=== PATIENT | male | born 1960 | race Caucasian/White ===

== ENCOUNTER 2023-08-26 16:36 | Inpatient (IN) | payer MEDICARE, SELFPAY ==
[2023-08-26 17:42] VITALS: BMI 37.3
[2023-08-26 17:45] VITALS: PULSE 65; O2SAT 97
[2023-08-26 17:46] VITALS: BP 135/65; PULSE 69; RESP 20; O2SAT 97
[2023-08-26 18:56] LABS: Troponin I < 0.01 ng/ml (0.00-0.034)
--- NOTE | 2023-08-26 19:59 | XR_ITS ---
PROCEDURE INFORMATION: Exam: XR Chest Exam date and time: 08/26/2023 8:13 PM Age: 63 years old Clinical indication: Shortness of breath TECHNIQUE: Imaging protocol: Radiologic exam of the chest. Views: 1 view. COMPARISON: No relevant prior studies available. FINDINGS: Lungs: Unremarkable. No consolidation. Pleural spaces: Unremarkable. No pleural effusion. No pneumothorax. Heart/Mediastinum: Cardiac silhouette appears mildly enlarged on this portable chest. Bones/joints: Prior median sternotomy, otherwise unremarkable.. IMPRESSION: Mild cardiomegaly otherwise negative chest.
[2023-08-26 20:00] VITALS: BP 137/73; PULSE 70; PULSE 71; RESP 17; TEMP 36.4; O2SAT 97
[2023-08-26 20:29] LABS: Basophils # 0.1 K/mm3 (0-0.2); Basophils % 0.8 % (0.1-2.0); Chloride 107 mmol/L (98-107); Eosinophils # 0.1 K/mm3 (0.0-0.4); Eosinophils % 1.4 % (0.1-12.0); Hematocrit 40.8 % (42.0-52.0); Lymphocytes # 1.1 K/mm3 (0.7-4.5); Lymphocytes % 18.8 % (10-50); Mean Corpuscular HGB Conc 31.9 g/dL (31.8-35.4); Mean Corpuscular Hemoglobin 32.9 pg (27.0-31.2); Mean Corpuscular Volume 103.2 fl (80-94); Mean Platelet Volume 8.6 fl (7.4-10.4); Monocytes # 0.4 K/mm3 (0.1-1.0); Monocytes % 6.1 % (1.7-9.3); Neutrophils # 4.3 K/mm3 (1.8-7.8); Neutrophils % 72.9 % (37.0-80.0); Platelet Count 174 K/mm3 (142-424); Potassium 3.9 mmoL/L (3.5-5.1); Red Blood Count 3.95 M/mm3 (4.60-6.20); Red Cell Distribution Width 14.3 % (11.5-17.5); Sodium 138 mmol/L (136-145); White Blood Count 5.8 K/mm3 (4.8-10.8)
[2023-08-26 20:32] LABS: Anion Gap 8.9 mEq/L (5-15); Blood Urea Nitrogen 9 mg/dl (9-20); Carbon Dioxide 26 mmol/L (22.0-30.0); Creatinine Clearance Estimated 130 mL/min (50-200); Estimated Glomerular Filt Rate 75 ml/min (>60); GFR (African American) 91 ML/MIN (>60)
[2023-08-26 20:33] LABS: Calcium 8.4 mg/dl (8.4-10.2); Glucose 174 mg/dl (74-100)
[2023-08-26 20:49] LABS: NT Pro Brain Natriuretic Pep. 132 pg/mL (0-125)
[2023-08-26] MEDS: LISINOPRIL 5MG TABLET 5 MG PO (21:00)
[2023-08-26] MEDS: ATORVASTATIN 40MG TABLET 40 MG PO (21:00)
[2023-08-26] MEDS: HEPARIN SODIUM 5,000 UNIT/ML VIAL 5000 UNIT SQ (21:01)
--- NOTE | 2023-08-26 21:32 | PC.NURSE ---
Spoke with Damien at [facility] pharmacy for Warfarin pharmacy request consult. He states to hold on Warfarin dose at this time. Sheridan Brady APRN notified and informed.
--- NOTE | 2023-08-26 21:51 | P.HP_ITS ---
History of Present Illness *Admission Date: 08/26/23 *Reason for visit:: chest pain *History of present illness: This is a 63 year old male with a past medical history of CAD s/p PCI and CABG, mechanicla heart valve on warfari, HTN, hypothyroidism, who presents as transfer from [facility] for further evaluation of chest pain. He reports cental chest pain with pressure, intermittent in nature that started around midnight last night. He reports getting out of bed and getting on the couch at that time. He states the pain eased and was able to get some rest. He reports the pain/pressure returned so decided to seek treatment in the ED due to his history. He also endorses associated shortness of breath with this chest discomfort, worse with exertion. EKG at [facility] revealed ST wave flattening in avl and V4 through V6. Troponin flat. Given his presentation and history, he was transferred here for further evaluation. On presentation here he does endorse mild chest pressure and shortness of breath with exertion. 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 CXR with cardiomegaly but no other abnormalities. Labs stable otherwise. Bedside monitor notable for occasional PVCs with intermittent bigeminy. He is currently [facility] Disclaimer: The information contained in this section may have been updated after the patient was seen, as this information can be updated by other users. Medical History Sleep apnea Diabetes mellitus Anxiety Surgical History (Updated 08/26/23 @ 22:01 by GUILLERMO Harding) Aortic valve replaced Family History (Updated 08/26/23 @ 18:02 by Monica Thomson RN) Other No significant family history Social History (Updated 08/26/23 @ 18:03 by Monica Thomson RN) Smoking Status: Former smoker alcohol intake: never current occupational status: retired Travel in the last 8 weeks: None Review of Systems Review of Systems Review of systems:: pertinent systems reviewed and negative unless documented below Meds Home Medications and Allergies Home Medications Medication Instructions Recorded Confirmed Type acetaminophen 500 mg tablet 500 mg PO DAILY 08/26/23 08/26/23 History aspirin 81 mg capsule,delayed 81 mg PO DAILY 08/26/23 08/26/23 History release atenolol 25 mg tablet 25 mg PO DAILY 08/26/23 08/26/23 History atorvastatin 40 mg tablet 40 mg PO DAILY 08/26/23 08/26/23 History cetirizine 10 mg tablet 10 mg PO DAILY 08/26/23 08/26/23 History cholecalciferol (vitamin D3) 25 25 mcg PO DAILY 08/26/23 08/26/23 History mcg (1,000 unit) capsule (Vitamin D3) famotidine 40 mg tablet 40 mg PO DAILY 08/26/23 08/26/23 History fluticasone propionate 50 1 spray intranasal BID 08/26/23 08/26/23 History mcg/actuation nasal spray,suspension (Flonase Allergy Relief) isosorbide mononitrate 30 mg 30 mg PO DAILY 08/26/23 08/26/23 History tablet,extended release 24 hr levothyroxine 137 mcg tablet 137 mcg PO DAILY 08/26/23 08/26/23 History lisinopril 5 mg tablet 5 mg PO DAILY 08/26/23 08/26/23 History montelukast 10 mg tablet 10 mg PO DAILY 08/26/23 08/26/23 History omeprazole 40 mg capsule,delayed 40 mg PO DAILY 08/26/23 08/26/23 History release paroxetine HCl 10 mg tablet 10 mg PO DAILY 08/26/23 08/26/23 History pregabalin 150 mg capsule (Lyrica) 150 mg PO HS 08/26/23 08/26/23 History semaglutide 1 mg/dose (4 mg/3 mL) 1 mg SQ WEEKLY 08/26/23 08/26/23 History subcutaneous pen injector (Ozempic) tamsulosin 0.4 mg capsule 0.4 mg PO DAILY 08/26/23 08/26/23 History warfarin 5 mg tablet 5 mg PO DAILY 08/26/23 08/26/23 History New Prescriptions to Start Prescriptions: Allergies Allergy/AdvReac Type Severity Reaction Status Date / Time acetaminophen Allergy Verified 08/26/23 17:44 [From Darvocet-N] meperidine [From Demerol] Allergy Verified 08/26/23 17:44 propoxyphene Allergy Verified 08/26/23 17:44 [From Darvocet-N] Exam Data for Last 24 hours Vital signs and Labs for Last 24 Hours: Pulse Resp BP Pulse Ox O2 Del Method 69 20 135/65 97 Room Air 08/26/23 17:46 08/26/23 17:46 08/26/23 17:46 08/26/23 17:46 08/26/23 21:00 Laboratory Results - last 24 hr 08/26/23 18:07: Troponin I < 0.01 08/26/23 20:10: WBC 5.8, RBC 3.95 L, Hgb 13.0 L, Hct 40.8 L, MCV 103.2 H, MCH 32.9 H, MCHC 31.9, RDW 14.3, Plt Count 174, MPV 8.6, Neut % (Auto) 72.9, Lymph % (Auto) 18.8, [place] % (Auto) 6.1, Eos % (Auto) 1.4, Baso % (Auto) 0.8, Neut # (Auto) 4.3, Lymph # (Auto) 1.1, [place] # (Auto) 0.4, Eos # (Auto) 0.1, Baso # (Auto) 0.1, PT 32.0 H, INR 3.20 H, Sodium 138, Potassium 3.9, Chloride 107, Carbon Dioxide 26, Anion Gap 8.9, BUN 9, Creatinine 1.00, Estimated Creat Clear 130, Estimated GFR 75, Est GFR ( Amer) 91, Glucose 174 H, Calcium 8.4, NT-Pro-B Natriuret Pep 132 H I & O for Last 24 hours: Intake & Output 08/23/23 08/24/23 08/25/23 08/26/23 23:59 23:59 23:59 23:59 Weight 124.965 kg Constitutional Constitutional: no acute distress *Routine HEENT Exam Head: Present normocephalic Eye: Present EOMI and PERRL ENT: Present mucous membranes moist *Routine Neck Exam Neck: Present supple; Absent lymphadenopathy *Routine Respiratory Exam Respiratory: Present CTA bilaterally *Routine Cardiovascular Exam Cardiovascular: Present RRR *Routine Abdominal Exam Abdominal: Present soft and normoactive bowel sounds; Absent tenderness *Routine Rectal Exam Rectal:: deferred *Routine Genitalia Exam Genitalia:: deferred *Routine Extremities Exam Extremities: Absent cyanosis, clubbing or edema *Routine Skin Exam Skin: Present warm; Absent rash *Routine Neurological Exam Neurological: Present alert and oriented X3 Assessment and Plan *Assessment and plan (1) Unstable angina: Status: Acute Category: Medical Code(s): I20.0 - Unstable angina (2) CAD (coronary artery disease): Status: Acute Qualifiers: Coronary Disease-Associated Artery/Lesion type: bypass graft Category: Medical Code(s): I25.10 - Atherosclerotic heart disease of [place] coronary artery without angina pectoris (3) Mechanical heart valve present: Status: Acute Category: Surgical Code(s): Z95.2 - Presence of prosthetic heart valve (4) Chronic anticoagulation: Status: Acute Category: Medical Code(s): 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 Will see in AM Troponins negative, EKG with T wave flattenitng but no acute ST elevation Continue DAPT Continue Statin medication Trend troponins Lipid panel and A1c In am NPO for likely cath in am #Aortic Mechanical Valve #Chronic anticoagulation Pharmacy consulted for warfarin managment Will hold Coumdain tonight given likely cath in AM #HTN Continue home lisinopril DVT Ppx home AC FUll Code
[2023-08-26 22:00] LABS: Troponin I < 0.01 ng/ml (0.00-0.034)
--- NOTE | 2023-08-26 22:54 | ECG_ITS ---
APPROVED REPORT Exam: Resting ECG HR:76 bpm ECG Measurements Heart Rate 76 AXES AR 180 P 2 QRSd 128 QRS 40 QT 418 T -50 QTc 448 Conclusion SINUS RHYTHM INFERIOR MYOCARDIAL INFARCTION , OF INDETERMINATE AGE [40+ ms Q WAVE AND/OR ST/T ABNORMALITY IN II/aVF] ABNORMAL ECG UNCONFIRMED REPORT Electronically signed by : Herman Fernandez MD 08/29/2023 12:26:03
[2023-08-26 23:05] LABS: POC Glucose,Bedside 165 (70-110)
[2023-08-27] VITALS (11 sets, daily range): BP systolic 108–155; BP diastolic 49–79; PULSE 60–79; RESP 16–24; TEMP 36.4–36.8; O2SAT 20–98; BMI 37.3
[2023-08-27 03:47] LABS: Troponin I < 0.01 ng/ml (0.00-0.034)
[2023-08-27] MEDS: HEPARIN SODIUM 5,000 UNIT/ML VIAL 5000 UNIT SQ ×3 (05:16→20:35)
--- NOTE | 2023-08-27 06:00 | CA_ITS ---
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: Sejal Paredes, GRETA, RVS Ht: 6 ft 0 in Wt: 275lbs BSA: 2.44 BP: 140/74 mmHg Indications: CAD,CAbg, Mechanical AVR, HTN, Ex-smoker, SAMANTHA, SOB 2D Dimensions Left Atrium 3.20 cm LVEF ([facility]'s) 37.90 % LV Volume 106.90 mL EF AP4 42.10 % EF AP2 35.9 % EF BP 37.9 % GL Strain -16.3 % M-Mode Dimensions RVDd 2.74 cm (0.9-2.6) LA Diam 4.26 cm (1.9-4.0) LVDd 5.76 cm (3.5-5.7) LVDs 4.02 cm (3.5-5.7) IVSd 1.33 cm (0.6-1.1) PWd 1.37 cm (0.6-1.1) EF (Teich) 56.80% EPSs 0.61 cm FS 30.20% EDV (Teich) 163.90 mL TAPSE 2.27 (<1.7) ESV (Teich) 70.80 mL LV Diastology E Decel Time 187 (160-240 msec) E/A Ratio 1.37 MED A' 9.20 cm/s LAT A' 12.00 cm/s Aortic Valve KAREN Index 0.86 cm2/m2 AoV Peak Hayden. 209.0 (50-130 cm/s) AI PHT 502.00 ms AO Peak GR. 17.40 mmHg AO Mean GR. 8.60 (<5 mmHg) AO VTI 40.4 (18-25 cm) KAREN (VTI) 2.15 (2.5-4.5 cm2) Mitral Valve MV A Velocity 58.0 (40-130 cm/s) E/A Ratio 1.37 Pulmonary Valve PV Peak Velocity 82.0 (50-150 cm/s) Tricuspid Valve TR P. Velocity 211.00 cm/s RAP Estimate 10.00 mmHg RVSP 27.90 mmHg Left Ventricle The left ventricle is normal size. The left ventricular systolic function is normal. The left ventricular ejection fraction is within the normal range. There is increased LV wall thickness. There is normal LV segmental wall motion. The left ventricular diastolic function is normal. LVEF is 55%. Right Ventricle The right ventricle is mildly dilated. The right ventricular systolic function is normal. Atria The left atrium size is normal. The right atrium size is normal. There is no Doppler evidence of interatrial shunt. Aortic Valve s/p mechanical AVR. The prosthesis is well-seated. Peak velocity 2.1 m/s. Mean AV gradient 7 mmHg. Max AV gradient 18 mmHg. Trace aortic regurgitation. Mitral Valve The mitral valve leaflets are mildly thickened. No evidence of mitral valve stenosis. Trace mitral regurgitation. Tricuspid Valve The tricuspid valve leaflets are thin and pliable. Trace tricuspid regurgitation. There is insufficient TR jet to estimate RVSP. Pulmonic Valve The pulmonary valve is normal in structure. Mild pulmonic regurgitation. Great Vessels The aortic root is normal in size. The ascending aorta is not well-visualized. The IVC is not well-visualized. Pericardium There is no pericardial effusion. Other Information Study Quality: Fair Conclusion Normal biventricular systolic function. Mild RV dilation. Mild PI. s/p mechanical AVR with overall acceptable transaortic valvular velocity and gradients. Electronically signed by : Diane Amaya MD 08/28/2023 01:31:18
[2023-08-27 06:35] LABS: POC Glucose,Bedside 145 (70-110)
[2023-08-27 06:51] LABS: Blood Urea Nitrogen 9 mg/dl (9-20); Calcium 8.5 mg/dl (8.4-10.2); Carbon Dioxide 27 mmol/L (22.0-30.0); Chloride 105 mmol/L (98-107); Creatinine Clearance Estimated 130 mL/min (50-200); Estimated Glomerular Filt Rate 75 ml/min (>60); GFR (African American) 91 ML/MIN (>60); Glucose 140 mg/dl (74-100); Sodium 139 mmol/L (136-145)
[2023-08-27 06:56] LABS: Basophils % 0.8 % (0.1-2.0); Eosinophils # 0.1 K/mm3 (0.0-0.4); Eosinophils % 2.2 % (0.1-12.0); Hematocrit 41.2 % (42.0-52.0); Hemoglobin 13.1 g/dL (14.1-18.0); Lymphocytes # 1.1 K/mm3 (0.7-4.5); Lymphocytes % 21.1 % (10-50); Mean Corpuscular HGB Conc 31.7 g/dL (31.8-35.4); Mean Corpuscular Hemoglobin 32.5 pg (27.0-31.2); Mean Corpuscular Volume 102.6 fl (80-94); Mean Platelet Volume 8.4 fl (7.4-10.4); Monocytes # 0.5 K/mm3 (0.1-1.0); Neutrophils # 3.6 K/mm3 (1.8-7.8); Neutrophils % 66.9 % (37.0-80.0); Platelet Count 169 K/mm3 (142-424); Red Blood Count 4.02 M/mm3 (4.60-6.20); White Blood Count 5.4 K/mm3 (4.8-10.8)
[2023-08-27 07:18] LABS: Chol/HDL Ratio 4.1 (1-3.5); Cholesterol 115 mg/dl (140-200); HDL Cholesterol 28 mg/dl (40-60); Triglycerides 220 mg/dl (30-150); VLDL Cholesterol 44 mg/dL (0-40)
[2023-08-27] MEDS: ASPIRIN EC 81MG TABLET 81 MG PO (08:31)
[2023-08-27] MEDS: FAMOTIDINE 20MG TABLET 40 MG PO (08:31)
[2023-08-27] MEDS: LEVOTHYROXINE 137MCG (0.137MG) TAB 137 MCG PO (08:31)
[2023-08-27 10:20] LABS: Hemoglobin A1C 7.8 % (4.0-6.0)
--- NOTE | 2023-08-27 11:21 | HMH.PHAINT1 ---
Pharmacy Intervention Comments: MEDICATION RECONCILIATION COMPLETED ON PATIENT USING EXTERNAL FILL HISTORY FROM PHARMACY. -FER MENENDEZ, [place]
--- NOTE | 2023-08-27 13:38 | P.CONCA_ITS ---
History of Present Illness History of Present Illness Consult date: 08/27/23 Requesting physician: Mihaela Pimentel Consult reason: chest pain Chief complaint: Chest pain Additional Medical History:: History of present illness: 63-year-old white male with history of CAD status post CABG and mechanical aortic valve replacement in 2003, status post PCI 2010. He is typically managed by Dr. Lopez in [place]. 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 Over the past week he noticed worsening shortness of breath doing his mowing activities followed by more frequent PVCs. Night before last he woke up with substernal chest pressure which was occurring episodically and partially relieved with nitroglycerin. He presented to the [facility] emergency room for evaluation and had t-wave inversions but normal Troponin and was transferred here for possible cath. This morning he reports he still has mild ongoing chest pressure which is relieved with Ntg but that causes hypotension and headache and he would like to decline the Ntg for now. His INR is 3.2 on arrival and he states pain is mild/tolerable. ECHO is pending. [facility] Disclaimer: The information contained in this section may have been updated after the patient was seen, as this information can be updated by other users. Medical History Sleep apnea Diabetes mellitus Anxiety Surgical History Aortic valve replaced Family History Other No significant family history Social History Smoking Status: Former smoker alcohol intake: never current occupational status: retired Travel in the last 8 weeks: None Review of Systems Constitutional Constitutional: Denies fatigue and Denies weakness Eyes Eyes: Denies loss of vision ENT Ears, Nose, Mouth, and Throat: Denies hearing loss and Denies vertigo *Cardiovascular Cardiovascular: Reports chest pain, Denies dyspnea and Denies syncope *Respiratory Respiratory: Denies cough and Denies dyspnea *Gastrointestinal Gastrointestinal: Denies change in stool character, Denies nausea and Denies vomiting *Genitourinary Genitourinary: Denies difficulty urinating *Musculoskeletal Musculoskeletal: Denies muscle weakness Integumentary/Breasts Skin/Breast: Denies changing lesions *Neurologic Neurologic: Denies loss of vision, Denies syncope, Denies vertigo and Denies weakness Endocrine Endocrine: Denies fatigue Exam Data for Last 24 hours Vital signs and Labs for Last 24 Hours: Temp Pulse Resp BP Pulse Ox O2 Del Method 98.1 F 79 19 155/79 H 96 Room Air 08/27/23 12:00 08/27/23 12:00 08/27/23 12:00 08/27/23 12:00 08/27/23 12:00 08/27/23 12:00 Laboratory Results - last 24 hr 08/26/23 18:07: Troponin I < 0.01 08/26/23 20:10: WBC 5.8, RBC 3.95 L, Hgb 13.0 L, Hct 40.8 L, MCV 103.2 H, MCH 32.9 H, MCHC 31.9, RDW 14.3, Plt Count 174, MPV 8.6, Neut % (Auto) 72.9, Lymph % (Auto) 18.8, [place] % (Auto) 6.1, Eos % (Auto) 1.4, Baso % (Auto) 0.8, Neut # (Auto) 4.3, Lymph # (Auto) 1.1, [place] # (Auto) 0.4, Eos # (Auto) 0.1, Baso # (Auto) 0.1, PT 32.0 H, INR 3.20 H, Sodium 138, Potassium 3.9, Chloride 107, Carbon Dioxide 26, Anion Gap 8.9, BUN 9, Creatinine 1.00, Estimated Creat Clear 130, Estimated GFR 75, Est GFR ( Amer) 91, Glucose 174 H, Calcium 8.4, NT-Pro-B Natriuret Pep 132 H 08/26/23 21:12: POC Glucose 165 H 08/26/23 21:19: Troponin I < 0.01 08/27/23 03:15: Troponin I < 0.01 08/27/23 05:11: WBC 5.4, RBC 4.02 L, Hgb 13.1 L, Hct 41.2 L, MCV 102.6 H, MCH 32.5 H, MCHC 31.7 L, RDW 14.0, Plt Count 169, MPV 8.4, Neut % (Auto) 66.9, Lymph % (Auto) 21.1, [place] % (Auto) 9.0, Eos % (Auto) 2.2, Baso % (Auto) 0.8, Neut # (Auto) 3.6, Lymph # (Auto) 1.1, [place] # (Auto) 0.5, Eos # (Auto) 0.1, Baso # (Auto) 0.0, Sodium 139, Potassium 4.0, Chloride 105, Carbon Dioxide 27, Anion Gap 11.0, BUN 9, Creatinine 1.00, Estimated Creat Clear 130, Estimated GFR 75, Est GFR ( Amer) 91, Glucose 140 H, Hemoglobin A1c 7.8 H, Calcium 8.5, Triglycerides 220 H, Cholesterol 115 L, LDL Cholesterol Direct 58.20 L, VLDL Cholesterol 44 H, HDL Cholesterol 28 L, Cholesterol/HDL Ratio 4.1 H 08/27/23 06:14: POC Glucose 145 H I & O for Last 24 hours: Intake & Output 08/24/23 08/25/23 08/26/23 08/27/23 23:59 23:59 23:59 23:59 Intake Total 920 / 920 Output Total 200 / 200 Balance 720 / 720 Weight 275 lb 8 oz 276 lb Constitutional Constitutional: no acute distress and cooperative *Routine HEENT Exam Eye: Present PERRL *Routine Respiratory Exam Respiratory: Present CTA bilaterally; Absent accessory muscle use, wheezes or crackles *Routine Cardiovascular Exam Cardiovascular: Present RRR, Normal S1 and Normal S2; Absent murmur, gallop or rubs *Routine Abdominal Exam Abdominal: Present soft; Absent tenderness *Routine Extremities Exam Extremities: Present pulses intact; Absent cyanosis or edema *Routine Skin Exam Skin: Present intact; Absent erythema or wounds *Routine Neurological Exam Neurological: Present alert and oriented X3 Routine Psychiatric Exam Psychiatric: Present cooperative Meds Home Medications and Allergies Home Medications Medication Instructions Recorded Confirmed Type acetaminophen 500 mg tablet 500 mg PO DAILY 08/26/23 08/26/23 History atenolol 25 mg tablet 25 mg PO DAILY 08/26/23 08/27/23 History atorvastatin 40 mg tablet 40 mg PO DAILY 08/26/23 08/27/23 History cetirizine 10 mg tablet 10 mg PO DAILY 08/26/23 08/27/23 History cholecalciferol (vitamin D3) 25 25 mcg PO DAILY 08/26/23 08/27/23 History mcg (1,000 unit) capsule (Vitamin D3) famotidine 40 mg tablet 40 mg PO DAILY 08/26/23 08/27/23 History fluticasone propionate 50 1 spray intranasal BID 08/26/23 08/27/23 History mcg/actuation nasal spray,suspension (Flonase Allergy Relief) isosorbide mononitrate 30 mg 15 mg PO DAILY 08/26/23 08/27/23 History tablet,extended release 24 hr levothyroxine 137 mcg tablet 137 mcg PO DAILY 08/26/23 08/27/23 History lisinopril 5 mg tablet 5 mg PO DAILY 08/26/23 08/27/23 History montelukast 10 mg tablet 10 mg PO PM 08/26/23 08/27/23 History omeprazole 40 mg capsule,delayed 40 mg PO DAILY 08/26/23 08/27/23 History release paroxetine HCl 10 mg tablet 10 mg PO DAILY 08/26/23 08/27/23 History semaglutide 1 mg/dose (4 mg/3 mL) 1 mg SQ WEEKLY 08/26/23 08/27/23 History subcutaneous pen injector (Ozempic) tamsulosin 0.4 mg capsule 0.4 mg PO HS 08/26/23 08/27/23 History warfarin 5 mg tablet 5 mg PO HS 08/26/23 08/27/23 History aspirin 81 mg tablet,delayed 81 mg PO DAILY 08/27/23 08/27/23 History release ranolazine 500 mg tablet,extended 500 mg PO BID 08/27/23 08/27/23 History release,12 hr New Prescriptions to Start Prescriptions: Allergies Allergy/AdvReac Type Severity Reaction Status Date / Time acetaminophen Allergy Verified 08/26/23 17:44 [From Darvocet-N] meperidine [From Demerol] Allergy Verified 08/26/23 17:44 propoxyphene Allergy Verified 08/26/23 17:44 [From Darvocet-N] Assessment and Plan *Assessment and plan (1) CAD (coronary artery disease): Status: Acute Qualifiers: Coronary Disease-Associated Artery/Lesion type: bypass graft Category: Medical Code(s): I25.10 - Atherosclerotic heart disease of [place] coronary artery without angina pectoris (2) Unstable angina: Status: Acute Category: Medical Code(s): I20.0 - Unstable angina (3) Mechanical heart valve present: Status: Acute Category: Surgical Code(s): Z95.2 - Presence of prosthetic heart valve (4) Chronic anticoagulation: Status: Acute Category: Medical Code(s): 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 No Lovenox or Plavix due to INR of 3.2 and pending LHC. His INR is 3.2 so we will wait until tomorrow for cath. Pt is agreeable to this and states symptoms are tolerable. He will advise us if any changes/worsening and we can take to cardiac cath lab technologist immediately s/p mechanical aortic valve 2010 - on warfarin daily, INR 3.2 - hold warfarin for LHC - ECHO pending Htn - cont home meds Obesity, BMI 37 - recommend aggressive weight loss via diet and exercise
--- NOTE | 2023-08-27 15:24 | PC.NURSE ---
PT IS SITTING UP IN THE CHAIR. ALERT AND ORIENTED X4. EATING AND DRINKING WELL. PT STATES HE STILL HAS A DULL ACHE IN HIS CHEST THAT HE DESCRIBES MILD AND TOLERABLE. NSR ON TELEMETRY. LUNG SOUNDS CLEAR. ABDOMEN SOFT/NON TENDER WITH ACTIVE BOWEL SOUNDS. NO SWELLING NOTED TO BLE. AMBULATED IN THE ANN. VSS. WILL CONTINUE TO MONITOR.
[2023-08-27 16:24] LABS: POC Glucose,Bedside 154 (70-110)
--- NOTE | 2023-08-27 16:39 | EXP.PN ---
Subjective *Date: 08/27/23 *Time: 16:39 Interval history: patient is seen at bedside, he admits to CP, SOB, denied fevers, chills Exam Data for Last 24 hours Vital signs and Labs for Last 24 Hours: Temp Pulse Resp BP Pulse Ox O2 Del Method O2 Flow Rate 97.9 F 68 16 150/78 H 94 L Nasal Cannula 4 08/27/23 16:00 08/27/23 16:00 08/27/23 16:00 08/27/23 16:00 08/27/23 16:00 08/27/23 15:07 08/27/23 15:07 Laboratory Results - last 24 hr 08/26/23 18:07: Troponin I < 0.01 08/26/23 20:10: WBC 5.8, RBC 3.95 L, Hgb 13.0 L, Hct 40.8 L, MCV 103.2 H, MCH 32.9 H, MCHC 31.9, RDW 14.3, Plt Count 174, MPV 8.6, Neut % (Auto) 72.9, Lymph % (Auto) 18.8, [place] % (Auto) 6.1, Eos % (Auto) 1.4, Baso % (Auto) 0.8, Neut # (Auto) 4.3, Lymph # (Auto) 1.1, [place] # (Auto) 0.4, Eos # (Auto) 0.1, Baso # (Auto) 0.1, PT 32.0 H, INR 3.20 H, Sodium 138, Potassium 3.9, Chloride 107, Carbon Dioxide 26, Anion Gap 8.9, BUN 9, Creatinine 1.00, Estimated Creat Clear 130, Estimated GFR 75, Est GFR ( Amer) 91, Glucose 174 H, Calcium 8.4, NT-Pro-B Natriuret Pep 132 H 08/26/23 21:12: POC Glucose 165 H 08/26/23 21:19: Troponin I < 0.01 08/27/23 03:15: Troponin I < 0.01 08/27/23 05:11: WBC 5.4, RBC 4.02 L, Hgb 13.1 L, Hct 41.2 L, MCV 102.6 H, MCH 32.5 H, MCHC 31.7 L, RDW 14.0, Plt Count 169, MPV 8.4, Neut % (Auto) 66.9, Lymph % (Auto) 21.1, [place] % (Auto) 9.0, Eos % (Auto) 2.2, Baso % (Auto) 0.8, Neut # (Auto) 3.6, Lymph # (Auto) 1.1, [place] # (Auto) 0.5, Eos # (Auto) 0.1, Baso # (Auto) 0.0, Sodium 139, Potassium 4.0, Chloride 105, Carbon Dioxide 27, Anion Gap 11.0, BUN 9, Creatinine 1.00, Estimated Creat Clear 130, Estimated GFR 75, Est GFR ( Amer) 91, Glucose 140 H, Hemoglobin A1c 7.8 H, Calcium 8.5, Triglycerides 220 H, Cholesterol 115 L, LDL Cholesterol Direct 58.20 L, VLDL Cholesterol 44 H, HDL Cholesterol 28 L, Cholesterol/HDL Ratio 4.1 H 08/27/23 06:14: POC Glucose 145 H 08/27/23 16:16: POC Glucose 154 H I & O for Last 24 hours: Intake & Output 08/24/23 08/25/23 08/26/23 08/27/23 23:59 23:59 23:59 23:59 Intake Total 920 / 920 Output Total 800 / 800 Balance 120 / 120 Weight 124.965 kg 125.191 kg Constitutional Constitutional: no acute distress *Routine HEENT Exam Head: Present normocephalic Eye: Present EOMI and PERRL ENT: Present mucous membranes moist *Routine Neck Exam Neck: Present supple; Absent lymphadenopathy *Routine Respiratory Exam Respiratory: Present CTA bilaterally *Routine Cardiovascular Exam Cardiovascular: Present RRR *Routine Abdominal Exam Abdominal: Present soft and normoactive bowel sounds; Absent tenderness *Routine Extremities Exam Extremities: Absent cyanosis, clubbing or edema *Routine Skin Exam Skin: Present warm; Absent rash *Routine Neurological Exam Neurological: Present alert and oriented X3 Assessment and Plan *Assessment and plan (1) Unstable angina: Status: Acute Category: Medical Code(s): I20.0 - Unstable angina (2) CAD (coronary artery disease): Status: Acute Qualifiers: Coronary Disease-Associated Artery/Lesion type: bypass graft Category: Medical Code(s): I25.10 - Atherosclerotic heart disease of [place] coronary artery without angina pectoris (3) Mechanical heart valve present: Status: Acute Category: Surgical Code(s): Z95.2 - Presence of prosthetic heart valve (4) Chronic anticoagulation: Status: Acute Category: Medical Code(s): Z79.01 - skilled nursing (current) use of anticoagulants (5) Hypertension: Status: Acute Qualifiers: Hypertension type: primary hypertension Qualified Code(s): I10 - Essential (primary) hypertension Category: Medical Code(s): I10 - Essential (primary) hypertension Plan This is 63 year old male with extensive cardiac disease and history who is admitted for ACS and unstabl angina. #Unstable angina #CAD Hx of CABG and PCI to LAD Pain at rest with worsening symptoms with exertion Troponins negative, EKG with T wave flattenitng but no acute ST elevation Continue DAPT Continue Statin medication Trend troponins NPO for likely cath in am #Aortic Mechanical Valve #Chronic anticoagulation Pharmacy consulted for warfarin managment Will hold Coumdain tonight given likely cath in AM #HTN Continue home lisinopril DVT Ppx - INR 3.2, hold coumadin per cardiology for cardiac cath, NPO after MN FUll Code
[2023-08-27] MEDS: ATORVASTATIN 40 MG PO (20:35)
[2023-08-27] MEDS: TAMSULOSIN 0.4MG CAPSULE 0.400000000000000022 MG PO (20:35)
[2023-08-27] MEDS: PANTOPRAZOLE 40MG TABLET 40 MG PO (20:35)
[2023-08-27] MEDS: LISINOPRIL 5 MG PO (20:35)
[2023-08-27] MEDS: ATENOLOL 25 MG PO (20:37)
[2023-08-27 21:29] LABS: POC Glucose,Bedside 120 (70-110)
[2023-08-28] VITALS (18 sets, daily range): BP systolic 93–137; BP diastolic 50–79; PULSE 59–77; RESP 16–21; TEMP 36.5–36.7; O2SAT 92–100; BMI 37.1
--- NOTE | 2023-08-28 05:01 | PC.NURSE ---
pt has rested well this shift, A&Ox4, no complaints of worsening chest pain, pt states dull tightening in chest that has not worsened since previous shift, pt remains NSR on tele, tolerating RA with 02 sats >90%, no acute changes since previous assessment
[2023-08-28] MEDS: HEPARIN SODIUM 5,000 UNIT/ML VIAL 5000 UNIT SQ (05:56)
[2023-08-28] MEDS: LEVOTHYROXINE 137 MCG PO (06:02)
[2023-08-28 06:07] LABS: Basophils % 0.7 % (0.1-2.0); Eosinophils # 0.2 K/mm3 (0.0-0.4); Eosinophils % 2.8 % (0.1-12.0); Hematocrit 43.4 % (42.0-52.0); Hemoglobin 13.8 g/dL (14.1-18.0); Lymphocytes # 1.5 K/mm3 (0.7-4.5); Lymphocytes % 28.4 % (10-50); Mean Corpuscular HGB Conc 31.9 g/dL (31.8-35.4); Mean Corpuscular Hemoglobin 33.2 pg (27.0-31.2); Mean Corpuscular Volume 104.1 fl (80-94); Mean Platelet Volume 8.2 fl (7.4-10.4); Monocytes # 0.5 K/mm3 (0.1-1.0); Monocytes % 9.5 % (1.7-9.3); Neutrophils % 58.5 % (37.0-80.0); Platelet Count 172 K/mm3 (142-424); Red Blood Count 4.17 M/mm3 (4.60-6.20); White Blood Count 5.2 K/mm3 (4.8-10.8)
[2023-08-28 06:13] LABS: INR 2.04 (0.9-1.1)
[2023-08-28 06:14] LABS: Blood Urea Nitrogen 11 mg/dl (9-20); Carbon Dioxide 27 mmol/L (22.0-30.0); Chloride 104 mmol/L (98-107); Creatinine Clearance Estimated 118 mL/min (50-200); Estimated Glomerular Filt Rate 67 ml/min (>60); GFR (African American) 81 ML/MIN (>60); Glucose 137 mg/dl (74-100); Sodium 138 mmol/L (136-145)
[2023-08-28 07:06] LABS: POC Glucose,Bedside 125 (70-110)
[2023-08-28] MEDS: LORATADINE 10MG TABLET 10 MG PO (08:21)
[2023-08-28] MEDS: ISOSORBIDE MONO 30MG TAB.ER.24H 15 MG PO (08:21)
[2023-08-28] MEDS: PARoxetine 10MG TABLET 10 MG PO (08:21)
[2023-08-28] MEDS: FAMOTIDINE 40 MG 1 EACH PO (08:21)
[2023-08-28] MEDS: *PAT OWN MED* ASPIRIN EC 81MG TABLET 81 MG PO (08:22)
--- NOTE | 2023-08-28 10:00 | IR_ITS ---
APPROVED REPORT Patient Location: Inpatient PROCEDURES Selective coronary angiogram Catheter placed in left subclavian artery with left subclavian artery angiography and indirect angiography of the left internal mammary artery INDICATION Coronary artery disease, History of coronary bypass surgery, Unstable angina, Informed consent was obtained prior to the procedure. COMPLICATIONS NONE Estimated Blood Loss: LESS THAN 10 ML TECHNIQUE One percent lidocaine used to anesthetize the right anterior aspect of the wrist. The right radial artery was accessed via the Seldinger technique. A 6 [place] sheath was placed in the right radial artery. 2.5 mg of Verapamil, 800 mcg of nitroglycerin, 1mg Lidocaine and 5000 U Heparin were given through the arterial sheath. The papa catheter was also used to perform selective coronary angiogram. The same catheter was placed in the left subclavian artery and left subclavian artery angiography was performed within direct visualization of the left internal mammary artery at the end of the procedure the sheath was removed good hemostasis was achieved using Traclet band, patient was transferred to the postop holding area in stable condition. ANGIOGRAPHIC RESULTS The left main artery Normal The left anterior descending artery Has a stent in the proximal segment which appears undersized but widely patent accompanied by SHAAN III flow. There is additional 30% mid vessel stenosis with no competitive flow from the left internal mammary artery The circumflex artery Is nondominant yet still large and has a long mid vessel tubular 30% stenosis The right coronary artery Is a dominant vessel and has proximal 20% with a mid vessel 30% stenosis and distal 30 to 40% stenosis. The posterior descending artery has a proximal concentric 30 to 40% stenosis with 30% stenosis in the mid posterior lateral branch The HUYNH ventriculogram reveals Was not performed however the mechanical aortic valve appeared to be opening and closing appropriately The left ventricular end-diastolic pressure Was not measured Left subclavian artery is widely patent as is the proximal portion of the left internal mammary graft however the vessel is then physiologically occluded with no flow into the LAD IMPRESSION Occluded left internal mammary artery Patent coronary arteries as described above PLAN 1. Continue medical management 2. Risk factor modification Electronically signed by : Marko Farooq MD 08/28/2023 12:47:21
[2023-08-28 11:21] LABS: POC Glucose,Bedside 120 (70-110)
[2023-08-28] MEDS: HEPARIN 1,000 UNITS/ML 10ML VIAL (CATH LAB) 10000 UNIT IV (12:47)
[2023-08-28] MEDS: HEPARIN 1,000 UNITS/500ML NS (CATH LAB) 3000 UNIT IV (12:47)
[2023-08-28] MEDS: 0.9 % SODIUM CHLORIDE 500 ML 25 ML IV (12:47)
[2023-08-28] MEDS: LIDOCAINE 1% 10ML MDV 20 ML IJ (12:47)
[2023-08-28] MEDS: diphenhydrAMINE 50MG/ML VIAL 50 MG IV (12:48)
[2023-08-28] MEDS: VERAPAMIL 2.5MG/ML 2ML VIAL 2.5 MG IV (12:48)
[2023-08-28] MEDS: MIDAZOLAM HCL 1MG/1ML 5ML VIAL 1 MG IV (12:48)
[2023-08-28] MEDS: NITROGLYCERIN 800MCG/8ML SYR (CATH LAB) 800 MCG IA (12:48)
[2023-08-28] MEDS: FENTANYL 100MCG/2ML VIAL 50 MCG IV (12:48)
[2023-08-28] MEDS: IOPAMIDOL-370 (76%);100ML BOTTLE 90 ML IV (14:45)
--- NOTE | 2023-08-28 16:49 | P.DS_ITS ---
General Admission date:: 08/27/23 Discharge date: 08/28/23 HPI HPI HPI: This is a 63 year old male with a past medical history of CAD s/p PCI and CABG, mechanicla heart valve on warfari, HTN, hypothyroidism, who presents as transfer from [facility] for further evaluation of chest pain. He reports cental chest pain with pressure, intermittent in nature that started around midnight last night. He reports getting out of bed and getting on the couch at that time. He states the pain eased and was able to get some rest. He reports the pain/pressure returned so decided to seek treatment in the ED due to his history. He also endorses associated shortness of breath with this chest discomfort, worse with exertion. EKG at [place] revealed ST wave flattening in avl and V4 through V6. Troponin flat. Given his presentation and history, he was transferred here for further evaluation. On presentation here he does endorse mild chest pressure and shortness of breath with exertion. Troponin negative here, EKG with no significant changes from EKG [employer]. CXR with cardiomegaly but no other abnormalities. Labs stable otherwise. Bedside monitor notable for occasional PVCs with intermittent bigeminy. He is currently Hospital Course Hospital Course Hospital Course: This is 63 year old male with extensive cardiac disease and history who is admitted for ACS and unstabl angina. patient is s/p cardiac cath during this hospitalization and no new stenting was performed, patient is cleared for discharge per cardiology with no changes in medication and to f/u as OP, patient and family agreed with the discharge plan. Total time spent 38 mints, patient is discharged in stable condition and verbalized understanding. #Unstable angina #CAD Hx of CABG and PCI to LAD #Aortic Mechanical Valve #Chronic anticoagulation #HTN Exam Data for Last 24 hours Vital signs and Labs for Last 24 Hours: Temp Pulse Resp BP Pulse Ox O2 Del Method 97.7 F 60 18 103/67 L 96 Room Air 08/28/23 13:15 08/28/23 16:00 08/28/23 16:00 08/28/23 16:00 08/28/23 16:00 08/28/23 16:33 Laboratory Results - last 24 hr 08/27/23 20:49: POC Glucose 120 H 08/28/23 05:36: WBC 5.2, RBC 4.17 L, Hgb 13.8 L, Hct 43.4, MCV 104.1 H, MCH 33.2 H, MCHC 31.9, RDW 14.0, Plt Count 172, MPV 8.2, Neut % (Auto) 58.5, Lymph % (Auto) 28.4, [place] % (Auto) 9.5 H, Eos % (Auto) 2.8, Baso % (Auto) 0.7, Neut # (Auto) 3.0, Lymph # (Auto) 1.5, [place] # (Auto) 0.5, Eos # (Auto) 0.2, Baso # (Auto) 0.0, PT 21.0 H, INR 2.04 H, Sodium 138, Potassium 4.0, Chloride 104, Carbon Dioxide 27, Anion Gap 11.0, BUN 11, Creatinine 1.10, Estimated Creat Clear 118, Estimated GFR 67, Est GFR ( Amer) 81, Glucose 137 H, Calcium 9.0 08/28/23 05:56: POC Glucose 125 H 08/28/23 11:11: POC Glucose 120 H I & O for Last 24 hours: Intake & Output 08/25/23 08/26/23 08/27/23 08/28/23 23:59 23:59 23:59 23:59 Intake Total 1400 / 1400 240 / 240 Output Total 800 / 800 0 / 0 Balance 600 / 600 240 / 240 Weight 124.965 kg 125.191 kg 124.511 kg Constitutional Constitutional: no acute distress *Routine HEENT Exam Head: Present normocephalic Eye: Present EOMI and PERRL ENT: Present mucous membranes moist *Routine Neck Exam Neck: Present supple; Absent lymphadenopathy *Routine Respiratory Exam Respiratory: Present CTA bilaterally *Routine Cardiovascular Exam Cardiovascular: Present RRR *Routine Abdominal Exam Abdominal: Present soft and normoactive bowel sounds; Absent tenderness *Routine Extremities Exam Extremities: Absent cyanosis, clubbing or edema *Routine Skin Exam Skin: Present warm; Absent rash *Routine Neurological Exam Neurological: Present alert and oriented X3 Results Data Completed and Pending Labs on day of discharge: Labs from last 24 hours 08/28/23 08/28/23 08/28/23 11:11 05:56 05:36 WBC 5.2 RBC 4.17 L Hgb 13.8 L Hct 43.4 MCV 104.1 H MCH 33.2 H MCHC 31.9 RDW 14.0 Plt Count 172 MPV 8.2 Neut % (Auto) 58.5 Lymph % (Auto) 28.4 [place] % (Auto) 9.5 H Eos % (Auto) 2.8 Baso % (Auto) 0.7 Neut # (Auto) 3.0 Lymph # (Auto) 1.5 [place] # (Auto) 0.5 Eos # (Auto) 0.2 Baso # (Auto) 0.0 PT 21.0 H INR 2.04 H Sodium 138 Potassium 4.0 Chloride 104 Carbon Dioxide 27 Anion Gap 11.0 BUN 11 Creatinine 1.10 Estimated Creat Clear 118 Estimated GFR 67 Est GFR ( Amer) 81 Glucose 137 H POC Glucose 120 H 125 H Calcium 9.0 08/27/23 20:49 WBC RBC Hgb Hct MCV MCH MCHC RDW Plt Count MPV Neut % (Auto) Lymph % (Auto) [place] % (Auto) Eos % (Auto) Baso % (Auto) Neut # (Auto) Lymph # (Auto) [place] # (Auto) Eos # (Auto) Baso # (Auto) PT INR Sodium Potassium Chloride Carbon Dioxide Anion Gap BUN Creatinine Estimated Creat Clear Estimated GFR Est GFR ( Amer) Glucose POC Glucose 120 H Calcium DS: Diagnosis Discharge Diagnosis (1) Unstable angina: Status: Acute Code(s): I20.0 - Unstable angina (2) CAD (coronary artery disease): Status: Acute Code(s): I25.10 - Atherosclerotic heart disease of [place] coronary artery without angina pectoris Qualifiers: Coronary Disease-Associated Artery/Lesion type: bypass graft (3) Mechanical heart valve present: Status: Acute Code(s): Z95.2 - Presence of prosthetic heart valve (4) Chronic anticoagulation: Status: Acute Code(s): Z79.01 - halfway (current) use of anticoagulants (5) Hypertension: Status: Acute Code(s): I10 - Essential (primary) hypertension Qualifiers: Hypertension type: primary hypertension Qualified Code(s): I10 - Essential (primary) hypertension Meds Home Medications and Allergies Home Medications Medication Instructions Recorded Confirmed Type acetaminophen 500 mg tablet 500 mg PO DAILY 08/26/23 08/26/23 History atenolol 25 mg tablet 25 mg PO DAILY 08/26/23 08/27/23 History atorvastatin 40 mg tablet 40 mg PO DAILY 08/26/23 08/27/23 History cetirizine 10 mg tablet 10 mg PO DAILY 08/26/23 08/27/23 History cholecalciferol (vitamin D3) 25 25 mcg PO DAILY 08/26/23 08/27/23 History mcg (1,000 unit) capsule (Vitamin D3) famotidine 40 mg tablet 40 mg PO DAILY 08/26/23 08/27/23 History fluticasone propionate 50 1 spray intranasal BID 08/26/23 08/27/23 History mcg/actuation nasal spray,suspension (Flonase Allergy Relief) isosorbide mononitrate 30 mg 15 mg PO DAILY 08/26/23 08/27/23 History tablet,extended release 24 hr levothyroxine 137 mcg tablet 137 mcg PO DAILY 08/26/23 08/27/23 History lisinopril 5 mg tablet 5 mg PO DAILY 08/26/23 08/27/23 History montelukast 10 mg tablet 10 mg PO PM 08/26/23 08/27/23 History omeprazole 40 mg capsule,delayed 40 mg PO DAILY 08/26/23 08/27/23 History release paroxetine HCl 10 mg tablet 10 mg PO DAILY 08/26/23 08/27/23 History semaglutide 1 mg/dose (4 mg/3 mL) 1 mg SQ WEEKLY 08/26/23 08/27/23 History subcutaneous pen injector (Ozempic) tamsulosin 0.4 mg capsule 0.4 mg PO HS 08/26/23 08/27/23 History warfarin 5 mg tablet 5 mg PO HS 08/26/23 08/27/23 History aspirin 81 mg tablet,delayed 81 mg PO DAILY 08/27/23 08/27/23 History release New Prescriptions to Start Prescriptions: Allergies Allergy/AdvReac Type Severity Reaction Status Date / Time acetaminophen Allergy Verified 08/26/23 17:44 [From Darvocet-N] meperidine [From Demerol] Allergy Verified 08/26/23 17:44 propoxyphene Allergy Verified 08/26/23 17:44 [From Darvocet-N] Discharge Plan Disposition Patient Disposition: Home, Self-Care Condition: Good Discharge Order Discharge Orders: Discharge Order (Routine); Ordered 08/28/23 Ordered By: Mihaela Pimentel Follow up Plan Follow up with: Corinne Preston APRN [Primary Care Provider] - Enter time for follow up (Please call and make a follow up appt. ) Isaias Amaya MD [Staff Physician] - 09/11/23 10:00 am Prescriptions/Medication Reconciliation: Continued warfarin 5 mg tablet 5 mg PO HS Ozempic 1 mg/dose (4 mg/3 mL) pen injector 1 mg SQ WEEKLY Patient Comments: Inject 1 mg every week by subcutaneous route for 84 days. fluticasone propionate [Flonase Allergy Relief] 50 mcg/actuation [place],Suspension 1 spray INTRANASAL BID paroxetine HCl 10 mg tablet 10 mg PO DAILY Patient Comments: Take 1 tablet by mouth Every Morning. atorvastatin 40 mg tablet 40 mg PO DAILY levothyroxine 137 mcg tablet 137 mcg PO DAILY cetirizine 10 mg tablet 10 mg PO DAILY Patient Comments: Take 1 tablet by mouth Every Morning. famotidine 40 mg tablet 40 mg PO DAILY Patient Comments: Take 1 tablet by mouth Daily With Breakfast. isosorbide mononitrate 30 mg tablet extended release 24 hr 15 mg PO DAILY Patient Comments: Take 1/2 tablet(s) every day by oral route. atenolol 25 mg tablet 25 mg PO DAILY omeprazole 40 mg capsule,delayed release(DR/EC) 40 mg PO DAILY Patient Comments: Take 1 capsule by mouth Daily. acetaminophen 500 mg Tablet 500 mg PO DAILY montelukast 10 mg tablet 10 mg PO PM Patient Comments: Take 1 tablet by mouth Every Evening. lisinopril 5 mg tablet 5 mg PO DAILY Patient Comments: Take 1 tablet by mouth Daily. cholecalciferol (vitamin D3) [Vitamin D3] 25 mcg (1,000 unit) Capsule 25 mcg PO DAILY tamsulosin 0.4 mg capsule 0.4 mg PO HS Patient Comments: Take 1 capsule (0.4 mg) by mouth every night. aspirin 81 mg Tablet,Delayed Release (Dr/Ec) 81 mg PO DAILY Problem Reconciliation Problems Reviewed?: Yes Patient Discharge Instructions ACTIVITY: Ambulate as tolerated DIET: continue same diet Patient Instructions: Angina, DI for Angina, DI for Cardiac Catheterization, DI for Surgical Site Infection, Coumadin Vitamin K/ Diet Providers Primary Care Provider: Corinne Preston Admit Provider: Mihaela Pimentel Attending Provider: Mihaela Pimentel
--- NOTE | 2023-08-29 14:37 | CARE MANAGER ---
Contacted patient related to hospital discharge. He states he is doing well. He didn't have any medication changes. He is aware of follow up appointment with cardiology and has appointment with PCP on Friday. Denies questions or concerns. FELICE Madrigal
== END 2023-08-28 17:33 | disposition home or self-care (01) | DRG 287 ==
PROVIDERS: Internal Medicine; Nurse Practitioner Acute Care; Admitting Provider Internal Medicine; PCP Nurse Practitioner Family; Visit Provider Internal Medicine
PROC: B2111ZZ Fluoroscopy of Multiple Coronary Arteries using Low Osmolar Contrast (ICD-10-PCS; principal; 2023-08-28 12:15)
DX: I25.110 Atherosclerotic heart disease of native coronary artery with unstable angina pectoris (principal); Z95.2 Presence of prosthetic heart valve; Z79.01 Long term (current) use of anticoagulants; I10 Essential (primary) hypertension; Z95.5 Presence of coronary angioplasty implant and graft; E03.9 Hypothyroidism, unspecified
CPT/HCPCS: 93459; 36225; 36415; 71045; 80048; 80061; 82962; 83036; 83880; 84484; 85025; 85610; 93005; 93306; 99152; C1725; C1760; C1769; G0378; J1644; Q9967